=== PATIENT | male | born 1985 | race Two or more races ===

== ENCOUNTER 2021-10-24 21:50 | Emergency (ER) | payer BC, OTHER ==
[~2021-10-24] VITALS: Ht 172.7 cm; Wt 127.0 kg
[2021-10-25] MEDS ORDERED: ACETAMINOPHEN 325 MG TAB PO ONE (07:45)
[2021-10-25] MEDS ORDERED: cefTRIAXone SOD 1,000 MG VL IM ONE (07:45)
[2021-10-25] MEDS ORDERED: LIDOCAINE 1% HCL (LOCAL ANESTH.) INJ 20ML MDV ONE (08:06)
[2021-10-25 08:08] VITALS: BP 156/102
[2021-10-25] MEDS ORDERED: TETANUS-DIPTH-ACEL PERTUSSIS 0.5ML SYR Tdap IM ONE (08:15)
[2021-10-25] MEDS ORDERED: IBU600T PO (08:24)
[2021-10-25] MEDS ORDERED: CEPH-509 PO (08:24)
== END 2021-10-25 08:37 | disposition home or self-care (01) ==
LOC: ER 21:52
DX: S62.355A Nondisplaced fracture of shaft of fourth metacarpal bone, left hand, initial encounter for closed fracture (principal); S61.215A Laceration without foreign body of left ring finger without damage to nail, initial encounter; X58.XXXA Exposure to other specified factors, initial encounter; Y93.89 Activity, other specified; Y92.89 Other specified places as the place of occurrence of the external cause; Y99.8 Other external cause status
CPT/HCPCS: 12002; 29130; 73130; 90471; 90715; 96372; 99284; J0696; J2001; 29125

== ENCOUNTER 2021-10-29 08:13 | Emergency (ER) | payer BC ==
[~2021-10-29] VITALS: Ht 167.6 cm; Wt 113.4 kg
[~2021-10-29 08:13] MED LIST: CEPH-509 PO; IBU600T PO
[2021-10-29 08:42] VITALS: BP 164/124
== END 2021-10-29 09:09 | disposition home or self-care (01) ==
LOC: ER 08:13
DX: S62.645D Nondisplaced fracture of proximal phalanx of left ring finger, subsequent encounter for fracture with routine healing (principal); S61.215D Laceration without foreign body of left ring finger without damage to nail, subsequent encounter; X58.XXXD Exposure to other specified factors, subsequent encounter